=== PATIENT | female | born 1965 | race Caucasian/White ===

== ENCOUNTER 2019-02-10 11:37 | Emergency (ER) | payer OTHER ==
[~2019-02-10] VITALS: Ht 172.7 cm; Wt 104.3 kg
[2019-02-10] MEDS ORDERED: SYNTHROID25 MCG PO (12:03)
== END 2019-02-10 12:25 | disposition home or self-care (01) ==
LOC: ER 11:37
DX: N89.8 Other specified noninflammatory disorders of vagina (principal); Z00.8 Encounter for other general examination; Z79.899 Other long term (current) drug therapy; E03.9 Hypothyroidism, unspecified
CPT/HCPCS: 99283